=== PATIENT | female | born 1965 | race Caucasian/White ===

== ENCOUNTER 2017-03-02 20:36 | Emergency (ER) | payer OTHER ==
[~2017-03-02] VITALS: Wt 98.5 kg
[~2017-03-02 20:36] MED LIST: CYCL-319 PO; IBUP800T25 PO; LORATIDINE PO; METFORMIN PO; OXYC-281 PO
[2017-03-02] MEDS ORDERED: CLOT30CR24 TOP (21:18)
--- NOTE | 2017-03-02 21:33 | ERD ---
ER Documentation Chief Complaint Date/Time DATE: 03/02/17 TIME: 21:27 Chief Complaint RED/FLAT ITCHY RASH BELOW BREAST/GROIN AREA HPI 51-year-old female complaining of itchy burning skin lesions under her breasts and in the groin area bilaterally for the last week. Patient states that the itching and burning sensation almost unbearable. Denies lesion elsewhere. Denies shortness of breath. Denies exposure to new foods or new cleaning products. Patient has history of diabetes. ROS All systems reviewed and are negative except as per history of present illness. Medications Home Meds Active Scripts Clotrimazole* (Clotrimazole* AF) 1% - 30 Gm Cream.gm., 1 APPLIC TOP BID for 14 Days, #2 TUB Prov:YOVANI DEL ROSARIO [employer] 03/02/17 Ibuprofen* (Motrin*) 800 Mg Tab, 800 MG PO Q8, #30 TAB 0 Refills Prov:CINDY GRAVES PA-C 01/18/16 Cyclobenzaprine Hcl* (Cyclobenzaprine Hcl*) 10 Mg Tablet, 10 MG PO TID, #14 TAB Prov:MELINDA JONES PA-C 03/12/15 Ibuprofen* (Ibuprofen*) 800 Mg Tab, 800 MG PO Q6H Y for PAIN, #20 TAB Prov:MELINDA JONES PA-C 03/12/15 Oxycodone Hcl-Acetaminophen* (Percocet*) 5-325 Mg Tablet, 1 TAB PO Q4H Y for BREAKTHROUGH PAIN, #14 TAB Prov:MELINDA JONES PA-C 03/12/15 Reported Medications [Loratidine] No Conflict Check, PO DAILY 05/14/14 [Metformin] No Conflict Check, PO DAILY 05/14/14 Allergies Allergies: Coded Allergies: Penicillins (Verified Allergy, Unknown, RASHES,ITCHING, 05/24/14) latex (Verified Allergy, Unknown, RASHES,BURNING, 05/24/14) Uncoded Allergies: STYROFORM (Allergy, Intermediate, SWELLING OF LIPS, 05/24/14) SWELLING OF LIPS PMhx/Soc History of Surgery: Yes (Lumbar Surgery) Anesthesia Reaction: No Hx Neurological Disorder: No Hx Respiratory Disorders: No Hx Cardiac Disorders: No Hx Psychiatric Problems: No Hx Miscellaneous Medical Probl: Yes (DMII) Hx Alcohol Use: No Hx Substance Use: No Hx Tobacco Use: No Smoking Status: Never smoker Physical Exam Vitals Vital Signs Date Time Temp Pulse Resp B/P Pulse Ox O2 Delivery O2 Flow Rate FiO2 03/02/17 20:41 97.9 86 20 160/80 98 Physical Exam General: Well-developed, well-nourished, conscious and coherent, in no distress Skin: Warm and dry, good texture and turgor. Large patches of confluent, angry erythematous papular macular lesions noted in the flexural area under her breasts bilaterally, and her bilateral groin. No lesions elsewhere. Head: Normocephalic without evidence of trauma Eyes: Sclera and conjunctivae normal; pupils equal, round, and reactive to light; extraocular movements are intact Chest: Normal AP diameter. Good expansion without retractions. Nontender. Lungs are clear to auscultate bilaterally with good tidal volume Heart: Regular rate and rhythm. No murmur, rub, or gallops heard Extremities: Full range of motion. Good strength bilaterally. No clubbing, cyanosis, or edema. Peripheral pulses are intact. Sensation intact Neuro: Alert and oriented 4, GCS 15. Cranial nerves grossly intact. Motor and sensory exams nonfocal. Moves all extremities. Speech clear. Gait normal Procedures/MDM Well-appearing 51-year-old female with history of diabetes presented to ED for itching and burning skin lesions in the flexural area or her skin. The lesion is consistent with Marie skin infection. I doubt allergic reaction or anaphylaxis. I doubt toxic shock syndrome, toxic epidermal necrolysis, or Keller-Jorge syndrome. Patient appears well, stable for discharge and outpatient management. Medical decision making shared with patient and family. Education provided to patient and family. Patient and family expressed understanding of the plan. Medications on discharge: Clotrimazole. Follow-up: Primary care provider in 2-3 days or return to ED if worse. Departure Diagnosis: Primary Impression: Marie infection of flexural skin Condition: Good Patient Instructions: Marie Skin Infection (Adult) [facility]errals[facility] Usted se ayala hecho un examen mdico de control que le indica que no est en monet condicin que requiera tratamiento urgente en el Departamento de Emergencia. Un estudio ms profundo y el tratamiento de rojo condicin pueden esperar sin ningn riesgo hasta que usted sea atendida/o en el consultorio de rojo mdico o monet cl jhon. Es responsabilidad suya arreglar monet pawel para el seguimiento del linda. MANEJO DE CONDICIONES NO URGENTES EN EL FUTURO 1) Si usted tiene un mdico de atencin primaria: Usted debera llamar a rojo mdico de atencin primaria antes de venir al departamento de emergencia. Despus de las horas de consultorio, rojo doctor o rojo asociado/a est disponible por telfono. El mdico o enfermero de jeffry en el servicio telefnico puede asesorarle por albaro medio para atender el problema, o linda contrario se puede programar monet pawel. 2) Si usted no tiene un mdico de atencin primaria: Llame al mdico o clnica de referencia que aparece abajo julia las horas de consultorio para hacer monet paewl para que le vean. CLINICAS: [facility] [phone] [facility]., [facility] [phone] [facility] [facility] [phone] [facility] [facility] [phone] [facility]. [place] [id number] [phone] [facility]. [phone] [address] Additional Instructions: Llame al doctor nombrado abajo (Referral Sources) MAANA y case monet PAWEL PARA DENTRO DE MONET SEMANA. Dgale a la secretaria que nosotros le instruimos hacer esta pawel.Avise o llame si rojo condicin se empeora antes de la pawel. YOVANI DEL ROSARIO NP March 02, 2017 21:33
== END 2017-03-02 21:38 | disposition home or self-care (01) ==
LOC: FTE 20:36
DX: B37.2 Candidiasis of skin and nail (principal); E11.9 Type 2 diabetes mellitus without complications; Z79.84 Long term (current) use of oral hypoglycemic drugs; Z91.040 Latex allergy status
CPT/HCPCS: 99283

== ENCOUNTER 2017-05-12 20:52 | Emergency (ER) | payer OTHER ==
[~2017-05-12] VITALS: Ht 162.6 cm; Wt 98.5 kg
[~2017-05-12 20:52] MED LIST changes: +CLOT30CR24 TOP
[2017-05-12 21:05] VITALS: Ht 162.6 cm; Wt 98.5 kg
[2017-05-12] MEDS ORDERED: DIAZEPAM 5 MG TAB PO ONE (22:30)
[2017-05-12] MEDS ORDERED: CYCL-319 PO (22:34)
[2017-05-12] MEDS ORDERED: NAPR-688 PO (22:34)
--- NOTE | 2017-05-13 01:01 | ERD ---
ER Documentation Chief Complaint Date/Time DATE: 05/13/17 TIME: 00:58 Chief Complaint back and neck pain x 5 days, denies injury HPI This is a 52-year-old female with history of diabetes type 2 presents complaining of left scapular and right lumbar back pain for the past 5 days. Patient states the pain is 7 out of 10 described as achy in the muscular region. Patient has been taking Mobic Motrin and Tylenol, she had her last dose of Motrin was at 6 and Tylenol was at 4 PM. Patient denies any saddle anesthesia, bladder or bowel incontinence. Denies any numbness or tingling. ROS All systems reviewed and are negative except as per history of present illness. Medications Home Meds Active Scripts Naproxen* (Naproxen*) 500 Mg Tablet, 500 MG PO BID, #30 TAB Prov:ALMA MCCLELLAND PA-C 05/12/17 Cyclobenzaprine Hcl* (Cyclobenzaprine Hcl*) 10 Mg Tablet, 10 MG PO TID, #30 TAB Prov:ALMA MCCLELLAND PA-C 05/12/17 Clotrimazole* (Clotrimazole* AF) 1% - 30 Gm Cream.gm., 1 APPLIC TOP BID for 14 Days, #2 TUB Prov:YOVANI DEL ROSARIO [employer] 03/02/17 Ibuprofen* (Motrin*) 800 Mg Tab, 800 MG PO Q8, #30 TAB 0 Refills Prov:CINDY GRAVES PA-C 01/18/16 Cyclobenzaprine Hcl* (Cyclobenzaprine Hcl*) 10 Mg Tablet, 10 MG PO TID, #14 TAB Prov:MELINDA JONES PA-C 03/12/15 Ibuprofen* (Ibuprofen*) 800 Mg Tab, 800 MG PO Q6H Y for PAIN, #20 TAB Prov:MELINDA JONES PA-C 03/12/15 Oxycodone Hcl-Acetaminophen* (Percocet*) 5-325 Mg Tablet, 1 TAB PO Q4H Y for BREAKTHROUGH PAIN, #14 TAB Prov:MELINDA JONES PA-C 03/12/15 Reported Medications [Loratidine] No Conflict Check, PO DAILY 05/14/14 [Metformin] No Conflict Check, PO DAILY 05/14/14 Allergies Allergies: Coded Allergies: Penicillins (Verified Allergy, Unknown, RASHES,ITCHING, 05/24/14) latex (Verified Allergy, Unknown, RASHES,BURNING, 05/24/14) Uncoded Allergies: STYROFORM (Allergy, Intermediate, SWELLING OF LIPS, 05/24/14) SWELLING OF LIPS PMhx/Soc Medical and Surgical Hx: pt denies Medical Hx, pt denies Surgical Hx History of Surgery: Yes (Lumbar Surgery) Anesthesia Reaction: No Hx Neurological Disorder: No Hx Respiratory Disorders: No Hx Cardiac Disorders: No Hx Psychiatric Problems: No Hx Miscellaneous Medical Probl: Yes (DMII) Hx Alcohol Use: No Hx Substance Use: No Hx Tobacco Use: No Physical Exam Vitals Vital Signs Date Time Temp Pulse Resp B/P Pulse Ox O2 Delivery O2 Flow Rate FiO2 05/12/17 21:05 97.8 92 20 158/80 100 Physical Exam GENERAL: WD/WN, in no apparent distress, non-toxic appearing HENT: NC/AT EYES: Conjunctiva normal NECK: Supple PULM: Normal labored breathing CV: Good capillary refill GI: Non-distended, no guarding BACK: no deformities noted, normal spinal curvature, TTP on lumbar region, non- tender on spine midline, tender palpation on the left scapular region EXT: No clubbing, cyanosis, or edema NEURO: Moves on all fours, sensation intact, normal gait SKIN: intact PSYCH: Normal mood Results 24 hrs Current Medications Medications (Trade) Dose Ordered Sig/Nereyda Route PRN Reason Start Time Stop Time Status Last Admin Dose Admin Diazepam (Valium) 10 mg ONCE ONCE PO 05/12/17 22:30 05/12/17 22:31 DC 05/12/17 22:16 Procedures/MDM This is a 52-year-old female presenting to the emergency department complaining of left scapular and right lumbar back pain likely musculoskeletal and region. Low suspicion for cauda equina syndrome, ACS, vertebral fracture or dislocation. EKG did not show any evidence of STEMI. In the ED patient was given Valium for muscle relaxer. Discussed to follow-up primary care physician and get a referral for physical therapy. Discussed return to the emergency department for any worsening signs or symptoms. Patient understands and agrees with plan. Prescription for naproxen and Flexeril were provided. EKG: read and signed off by myself and Pen[place] Rate/Rhythm: [Normal Sinus Rhythm at 81 bpm] QRS, ST, T-waves: [No changes consistent w/ acute ischemia] Impression: [No evidence of ischemia or arrhythmia] Departure Diagnosis: Primary Impression: Back pain Additional Impression: Neck pain Condition: Stable Patient Instructions: Back Pain (Acute Or Chronic), Neck Pain, No Trauma Additional Instructions: Visite a rojo mdico maana para un EXAMEN.Regrese a estas instalaciones si no se mejora shahbaz esperbamos o shahbaz le dijimos. [place] toda la medicina veronica y shahbaz se le indic. Regrese a estas instalaciones si no se mejora shahbaz esperbamos o shahbaz le dijimos. La medicina que se le recet puede causarle sueo.NO DEBE MANEJAR NI OPERAR MAQUINARIAS PELIGROSAS mientras esta tomando esta medicina! ALMA MCCLELLAND PA-C May 13, 2017 01:00
== END 2017-05-12 22:44 | disposition home or self-care (01) ==
LOC: FTE 20:52
DX: M54.5 Low back pain (principal); M54.2 Cervicalgia; E11.9 Type 2 diabetes mellitus without complications; Z91.040 Latex allergy status
CPT/HCPCS: 93005; Z7502; Z7610